=== PATIENT | male | born 1960 | race Caucasian/White ===

== ENCOUNTER 2018-12-11 22:24 | Inpatient (IN) | payer BC ==
[~2018-12-11] VITALS: Ht 175.3 cm; Wt 131.4 kg
[2018-12-11 22:27] VITALS: BP 153/126
[2018-12-11 22:41] LABS: BASOPHILS 0.7 % (0.0-2.0); EOSINOPHILS 1.6 % (0.0-3.0); HEMATOCRIT 45.6 % (42.0-52.0); HEMOGLOBIN 15.8 gm/dL (14.0-18.0); LYMPHOCYTES 18.8 % (24.0-44.0); MCHC 34.6 g/dL (28.0-37.0); MCV 92.4 fL (80.0-100.0); MONOCYTES 9.5 % (1.0-8.0); PLATELET COUNT 147 thou/uL (150-400); POLYS 69.4 % (36.0-66.0); RBC 4.94 mil/uL (4.50-6.00); RDW 14.2 % (10.5-14.5); WBC 7.3 thou/uL (4.0-11.0)
[2018-12-11] MEDS ORDERED: VASCEPA1 GM PO (22:45)
[2018-12-11] MEDS ORDERED: ELIQUIS2.5 MG PO (22:46)
[2018-12-11] MEDS ORDERED: SOTALOL80 MG PO (22:46)
[2018-12-11 22:47] LABS: ANION GAP 14 mmol/L (7-16); BUN 17 mg/dL (7-18); CALCIUM 8.7 mg/dL (8.5-10.1); CHLORIDE 102 mmol/L (98-107); CO2 24 mmol/L (21-32); CREATININE 1.2 mg/dL (0.7-1.3); GLUCOSE 151 mg/dL (74-106); POTASSIUM 3.4 mmol/L (3.5-5.1); SODIUM 140 mmol/L (136-145)
[2018-12-11] MEDS ORDERED: CARVEDILOL3.125 MG PO (22:47)
[2018-12-11] MEDS ORDERED: COZAAR 25 MG TA25 M2 PO (22:47)
[2018-12-11] MEDS ORDERED: COLCHICINE0.6 MG PO (22:48)
[2018-12-11] MEDS ORDERED: ATORVASTATIN CA40 MG PO (22:49)
[2018-12-11] MEDS ORDERED: ALLOPURINOL 30300 M1 PO (22:49)
[2018-12-11] MEDS ORDERED: TYLENOL EXTRA500 MG PO (22:50)
[2018-12-11] MEDS ORDERED: XANAX 0.5 MG0.5 MG PO (22:51)
[2018-12-11 22:56] LABS: MAGNESIUM 1.6 mg/dL (1.8-2.4); TROPONIN-I <0.06 ng/mL (<0.06)
[2018-12-12] VITALS (17 sets, daily range): BP systolic 91–158; BP diastolic 63–105
--- NOTE | 2018-12-12 03:38 | NUR ---
PT ARRIVED UNIT AT ABOUT 0045 VIA ER. PT A/OX4, VITAL SIGNS STABLE, ON CARDIZEM DRIP GOING AT 15ML/HR, HR IN 130'S AND OCCASIONAL RUNS OF VTACH. NO COMPLAINS OF SOA, NO COMPLAINTS OF CHEST PAIN. CARDIZEM TITRATED UP TO 20ML/HR AT ABOUT 0100. AT ABOUT 0300, HR BETWEEN 80-100. CARDIZEM TITRATED DOWN TO 15ML/HR. ADMISSION CONPLETE. CONSENTS SIGNED. PT RESTED WELL FOR THE REST OF SHIFT. WILL CONTINUE TO MONITOR.
[2018-12-12 05:49] LABS: CALCIUM 8.9 mg/dL (8.5-10.1); POTASSIUM 3.9 mmol/L (3.5-5.1)
--- NOTE | 2018-12-12 06:03 | NUR ---
PT CONTINUES TO REST. HR IN 30'S TO 40'S. CARDIZEM TURNED OFF. BP 96/63. ASYMPTOMATIC. SINUS BRADYCARDIA ON THE MONITOR AT THIS TIME. WILL CONTNUE TO CLOSELY MONITOR.
[2018-12-12 09:10] LABS: APTT 32.6 Seconds (24.5-32.8); INR 1.2; PROTIME 12.4 Seconds (9.3-11.4)
--- NOTE | 2018-12-12 10:03 | 2DMMODE ---
[facility] [place] [address] 2 D/M-MODE ECHOCARDIOGRAM Name: VERA SALINAS Room #: 211-P ADM IN .R.#: [id number] ������������� Admission: 12/12/18 ������������� Attend Phys: Timbo Burgos MD Discharge: ��� ������������� ��� Date of : 56 Date of Service: 12/12/18 1002 �� Report #: [id number] �������� ��������������������������������������������[id number] THIS REPORT FOR: //name// APPROVED REPORT Study performed: 12/12/2018 08:33:46 EXAM: Comprehensive 2D, Doppler, and color-flow Echocardiogram Patient Location: Bedside Room #: 211 Status: routine BSA: 2.42 HR: 52 bpm BP: 91/64 mmHg Rhythm: Bradycardia Other Information Study Quality: Technically DifficultTechnically Limited Indications Atrial Fibrillation Bradycardia CAD Hypertension/HDD Echo Enhancing Agent Indication: Endocardial border delineation Agent(s) / Amount(s) Used: Optison 3 cc 2D Dimensions IVSd: 11.95 (7-11mm) LVOT Diam: 21.11 (18-24mm) LVDd: 55.38 mm PWd: 12.36 (7-11mm) LVDs: 44.43 (25-40mm) Aortic Root: 24.70 mm IVC: 25.00 mm Aortic Valve AoV Peak Luis.: 1.73 m/s AO Peak Gr.: 12.00 mmHg LVOT Max P.39 mmHg LVOT Max V: 0.77 m/s JASMINE Vmax: 1.56 cm2 AI Vmax: 3.21 m/s AI Boyd: 1.81 m/s2 AI PHT: 515.[address] [facility] [address] [place] [address] 2 D/M-MODE ECHOCARDIOGRAM Name: VERA SALINAS Room #: 211-P [facility] IN .R.#: [id number] ������������� Admission: 12/12/18 ������������� Attend Phys: Timbo Burgos MD Discharge: ��� ������������� ��� Date of : 56 Date of Service: 12/12/18 1002 �� Report #: [id number] �������� ��������������������������������������������[id number] Mitral Valve E/A Ratio: 3.3 MV Decel. Time: 218.50 ms MV E Max Luis.: 1.19 m/s MV A Luis.: 0.36 m/s MV PHT: 63.36 ms IVRT: 83.04 ms Pulmonary Valve PV Peak Luis.: 0.75 m/s PV Peak Gr.: 2.28 mmHg Tricuspid Valve TR Peak Luis.: 2.80 m/s TR Peak Gr.: 31.46 mmHg PA Pressure: 41.00 mmHg Left Ventricle The left ventricle is normal size. There is global hypokinesis of the left ventricle. Mild concentric left ventricular hypertrophy. Left ventricular systolic function is mildly decreased. LVEF is 45-50%. This study is not technically sufficient to allow evaluation of the LV diastolic function. Right Ventricle The right ventricle is normal size. The right ventricular systolic function is normal. Atria Left atrium is not well visualized. Left atrium is at the upper limits of normal. Right atrium is not well visualized. Aortic Valve Aortic valve is calcified. Mild aortic regurgitation. There mild aortic valvular stenosis. Mitral Valve Moderate mitral annular calcification. Trace to mild mitral regurgitation. No evidence of mitral valve stenosis. Tricuspid Valve The tricuspid valve is normal in structure. There is trace tricuspid regurgitation. Estimated PAP 40 mmHg. There is mild-moderate pulmonary hypertension. Pulmonic Valve [facility] [address] [place] [address] 2 D/M-MODE ECHOCARDIOGRAM Name: VERA SALINAS Room #: 211-P [facility] IN M.R.#: [id number] ������������� Admission: 12/12/18 ������������� Attend Phys: Timbo Burgos MD Discharge: ��� ������������� ��� Date of : 56 Date of Service: 12/12/18 1002 �� Report #: [id number] �������� ��������������������������������������������[id number] The pulmonary valve is normal in structure. Trace pulmonic regurgitation. Great Vessels The aortic root is normal in size. IVC is dilated and collapses <50% with inspiration. Pericardium There is no pericardial effusion. <Conclusion> Technically limited study Left ventricular systolic function is mildly decreased. LVEF is 45-50%. Aortic valve is calcified. Mild aortic regurgitation, very mild stenosis. Moderate mitral annular calcification. Trace to mild mitral regurgitation. There is trace tricuspid regurgitation. Estimated pulmonary artery pressure of 40 mmHg. There is no pericardial effusion. ��������������������������������������������� <ELECTRONICALLY SIGNED> ���������������������������������������� By: Dilip Smith MD, FACC ��������������������������������������������� 12/12/18 1002 1002 1002 Dilip Smith MD, FACC /INF
--- NOTE | 2018-12-12 12:16 | EKG ---
[address] [place] [address] ELECTROCARDIOGRAM REPORT Name: TIFFANI SALINASY Room #: 211-P ADM IN M.R.#: [id number] ������������������ Admission: 12/12/18 ������������������ Attend Phys: Timbo Burgos MD Discharge: ������������������ Date of : 56 Report #: [id number] ����������������������������������������������������������������� [id number] THIS REPORT FOR: //name// [facility] Test Date: 2018-12-12 Test Time: 08:19:45 Pat Name: VERA SALINAS Department: Room: 211 P Gender: M Level Glass Vial Filler: DORA : 1960 Requested By: Heidi Rosales Order Number: [id number] MD: José Allison Measurements Intervals [place] Rate: 40 P: 73 [place]: 199 QRS: -50 QRSD: 104 T: 1 QT: 540 QTc: 441 Interpretive Statements Sinus bradycardia Atrial premature complex Possible inferior infarct, age indeterminate Anterior infarct, old Nonspecific ST-T wave changes Electronically Signed On 12-12-2018 12:16:12 HAND EXPANSION ENVELOPE MAKER by José Allison [email or web address] ��������������������������������������������� <ELECTRONICALLY SIGNED> ���������������������������������������� By: José Allison MD ��������������������������������������������� 12/12/18 1216 D: [id number] 8 José Allison MD /MARK
--- NOTE | 2018-12-12 16:49 | NUR ---
PT CARE ASSUMED APPROX 0700. PT ALERT AND ORIENTED X4. DENIES PAIN AND SOA. PT WAS BRADYCARDIC THIS AM WHEN SHIFT STARETED. EP ROUNDED AND STOPPED RATE CONTROLLING MEDS. PACEMAKER PLACEMENT SCHEDULED FOR THIS AFTERNOON AND COMPLETED. PT RETUNRED TO UNIT APPROX 1530. POST PROCEDURE VSS. FAMILY PRESENT AT BEDSIDE. LEFT CHEST INCISION C/D/I. IMMOBILIZER IN PLACE TO LEFT ARM. PT AND FAMILY DENY QUESTIONS OR CONCERNS REGARDING POC. NO DISTRESS NOTED.
[2018-12-12] MEDS ORDERED: COZAAR 25 MG TA25 M1 PO (20:05)
[2018-12-13 00:25] VITALS: BP 142/89
[2018-12-13 03:55] VITALS: BP 159/95
--- NOTE | 2018-12-13 04:16 | NUR ---
PT. AOX4; NO C/O PAIN; REQUESTED PRN SLEEP MEDICATION AFTER 2300; SBP ELEVATED ON 160'S; 'S PT. STATE PT. TAKES LOSARTAN 50 MG BID; SUPPLIER QUALITY ENGINEERING MANAGER NOTIFIED; ORDERS RECEIVED; SBP AT MIDNIGHT 140'S; ABLE TO REST SOME HOURS; HR WNL; ASSESSMENT CHARGED; FOLLOWING POC; WILL PASS ON REPORT.
[2018-12-13 07:59] VITALS: BP 174/111
[2018-12-13] MEDS ORDERED: COREG6.25 MG PO (09:05)
[2018-12-13] MEDS ORDERED: HYDROCODON-ACE1 EAC7 PO (09:05)
[2018-12-13 11:45] VITALS: BP 148/92
[2018-12-13 13:55] VITALS: BP 148/92
--- NOTE | 2018-12-13 14:23 | NUR ---
PT CARE ASSUMED 0700. PT ALERT AND ORIENTED X4. DENIES PAIN AND SOA. BP SLIGHTLY ELEVATED THIS AM. EP DIRECT SUPPORT STAFF ON UNIT AT TIME AND JUST WANTED AM MEDS GIVEN AND A BP RECHECK IN 45 MIN. DIRECT SUPPORT STAFF WAS NOTIFIED WITH NEW BP AND DISCHARGE WAS APPROVED. LAST VANCO DOSE GIVEN AND PAPERWORK REVIEWED WITH PT AND SPOUSE. BOTH DENY QUESTIONS AND CONCERNS REGARDING DISCHARGE MEDS, F/U APPTS, DIET, ACTIVITY RESTRICTIONS, INCISION CARE AND GENERAL POST HOSPITAL CARE. IV OUT, TELE OFF. NURSING STAFF ESCORTED PT OUT AT THIS TIME.
--- NOTE | 2018-12-14 19:17 | EKG ---
[address] [address] ELECTROCARDIOGRAM REPORT Name: TIFFANI SALINASY Room #: 211-P [facility] IN M.R.#: [id number] ������������������ Admission: 12/12/18 ������������������ Attend Phys: Timbo Burgos MD Discharge: 12/13/18 ������������������ Date of : 56 Report #: [id number] ����������������������������������������������������������������� [id number] THIS REPORT FOR: //name// [facility] ED Test Date: 2018-12-11 Test Time: 22:34:29 Pat Name: VERA SALINAS Department: Room: 211 Gender: M Material Control Specialist: OLINDA : 1960 Requested By: Reinier Hsieh Order Number: [id number] MD: José Allison Measurements Intervals [place] Rate: 132 P: [place]: QRS: -57 QRSD: 106 T: 105 QT: 344 QTc: 510 Interpretive Statements Atrial fibrillation Probable anterolateral infarct, age indeterm Prolonged QT interval No previous ECG available for comparison Electronically Signed On 12-14-2018 19:16:54 APARTMENT MAINTENANCE MANAGER by José Allison [email or web address] ��������������������������������������������� <ELECTRONICALLY SIGNED> ���������������������������������������� By: José Allison MD ��������������������������������������������� 12/14/186 2234 33 José Allison MD /MARK
== END 2018-12-13 14:45 | disposition home or self-care (01) | DRG 244 ==
LOC: ER 22:24 → 2N 12-12 00:21 → EROBS 12-12 00:21 → 2N 12-12 00:41
PROVIDERS: Emergency Medicine; Internal Medicine Cardiovascular Disease; Nurse Practitioner Family; ADMIT Hospitalist
PROC: 0JH606Z Insertion of Pacemaker, Dual Chamber into Chest Subcutaneous Tissue and Fascia, Open Approach (ICD-10-PCS; principal; 2018-12-12)
PROC: 02HK3JZ Insertion of Pacemaker Lead into Right Ventricle, Percutaneous Approach (ICD-10-PCS; principal; 2018-12-12)
PROC: 02H63JZ Insertion of Pacemaker Lead into Right Atrium, Percutaneous Approach (ICD-10-PCS; principal; 2018-12-12)
DX: I49.5 Sick sinus syndrome (principal); I48.0 Paroxysmal atrial fibrillation; I25.10 Atherosclerotic heart disease of native coronary artery without angina pectoris; I10 Essential (primary) hypertension; E78.5 Hyperlipidemia, unspecified; G47.33 Obstructive sleep apnea (adult) (pediatric); M10.9 Gout, unspecified; I45.5 Other specified heart block; I25.2 Old myocardial infarction; Z85.46 Personal history of malignant neoplasm of prostate; Z95.5 Presence of coronary angioplasty implant and graft; Z80.9 Family history of malignant neoplasm, unspecified; Z79.899 Other long term (current) drug therapy
CPT/HCPCS: 10081; 62110; 62900; 70005

== ENCOUNTER 2018-12-24 22:48 | Inpatient (IN) | payer BC ==
[~2018-12-24] VITALS: Ht 175.3 cm; Wt 123.5 kg
[~2018-12-24 22:48] MED LIST: ALLOPURINOL 30300 M1 PO; ATORVASTATIN CA40 MG PO; CARVEDILOL3.125 MG PO; COLCHICINE0.6 MG PO; COREG6.25 MG PO; COZAAR 25 MG TA25 M1 PO; COZAAR 25 MG TA25 M2 PO; ELIQUIS2.5 MG PO; HYDROCODON-ACE1 EAC7 PO; SOTALOL80 MG PO; TYLENOL EXTRA500 MG PO; VASCEPA1 GM PO; XANAX 0.5 MG0.5 MG PO
[2018-12-24 23:16] LABS: ABSOLUTE NEUTROPHILS 4.5 thou/uL (1.4-8.2); BASOPHILS 0.6 % (0.0-2.0); EOSINOPHILS 1.3 % (0.0-3.0); HEMATOCRIT 45.4 % (42.0-52.0); HEMOGLOBIN 15.5 gm/dL (14.0-18.0); LYMPHOCYTES 18.8 % (24.0-44.0); MCH 31.7 pg (26.0-34.0); MCHC 34.2 g/dL (28.0-37.0); MCV 92.5 fL (80.0-100.0); MONOCYTES 8.2 % (1.0-8.0); PLATELET COUNT 144 thou/uL (150-400); POLYS 71.1 % (36.0-66.0); RBC 4.91 mil/uL (4.50-6.00); RDW 14.3 % (10.5-14.5); WBC 6.3 thou/uL (4.0-11.0)
[2018-12-24 23:21] LABS: CALCIUM 8.9 mg/dL (8.5-10.1); POTASSIUM 3.5 mmol/L (3.5-5.1)
[2018-12-24 23:29] LABS: TROPONIN-I 0.06 ng/mL (<0.06)
[2018-12-25 01:03] VITALS: BP 120/90
[2018-12-25 01:30] VITALS: BP 125/78
[2018-12-25 05:13] VITALS: BP 117/98
--- NOTE | 2018-12-25 05:26 | NUR ---
PT NEW ADMIT FROM ER AT ABOUT 0200. ADMITTED FOR AFIB WITH RVR, VTACH. PATIENT WAS HERE A FEW WEEKS A GO FOR PACEMAKER PLACEMENT. HE DENIES PAIN , CHEST PAIN, NAUSEA, VOMITING, DIZZINESS. CARDIO CONSULT , DR SARAVIA �WAS PAGED FROM THE ED AND ORDERED AMIODARONE DRIP. PT REMAINS TO BE TACHY, 100 - 130S BUT ASYPTOMATIC. PT BROUGHT HIS HOME MEDS WITH HIM, MEDS LABELED AND SENT TO PHARMACY, PATIENT AWARE. NO PACEMAKER SPIKES RECORDED ON THE MONITOR. VITAL SIGNS STABLE. WILL CONTINUE TO MONITOR AND FOLLOW POC.
[2018-12-25 07:03] LABS: CALCIUM 8.9 mg/dL (8.5-10.1); CREATININE 1.1 mg/dL (0.7-1.3); POTASSIUM 3.6 mmol/L (3.5-5.1); TROPONIN-I 0.08 ng/mL (<0.06)
[2018-12-25 07:25] VITALS: BP 160/121
--- NOTE | 2018-12-25 08:01 | EKG ---
[address] [address] ELECTROCARDIOGRAM REPORT Name: VERA SALINAS Room #: 204-P ADM IN M.R.#: [id number] ������������������ Admission: 12/25/18 ������������������ Attend Phys: Alex Carpio MD Discharge: ������������������ Date of : 56 Report #: [id number] ����������������������������������������������������������������� [id number] THIS REPORT FOR: //name// [facility] ED Test Date: 2018-12-24 Test Time: 22:51:23 Pat Name: VERA SALINAS Department: Room: 204 Gender: M Study Assistant: Yaya BLACK : 1960 Requested By: Reinier Hsieh Order Number: [id number] MD: Dilip Smith Measurements Intervals [place] Rate: 126 P: 158 [place]: 78 QRS: -54 QRSD: 108 T: 100 QT: 334 QTc: 484 Interpretive Statements Atrial fibrillation with occasional apparent conduction Inferior infarct, old Anterior infarct, old T-wave abnormality, consider lateral ischemia Compared to ECG 12/12/2018 08:19:45 Sinus bradycardia no longer present Electronically Signed On 12-25-2018 8:01:29 CDT by Dilip Smith [email or web address] ��������������������������������������������� <ELECTRONICALLY SIGNED> ���������������������������������������� By: Dilip Smith MD, FACC ��������������������������������������������� 12/25/18 0801 225 225 Dilip Smith MD, [facility] /EPI
[2018-12-25 11:06] VITALS: BP 156/102
[2018-12-25] MEDS ORDERED: COLCHICINE0.6 MG PO (13:23)
[2018-12-25] MEDS ORDERED: VASCEPA1 GM PO (13:23)
[2018-12-25] MEDS ORDERED: ELIQUIS5 MG PO ×2 (13:24→13:25)
--- NOTE | 2018-12-25 15:05 | NUR ---
Chart reviewed and case discussed with the care team. Pt admitted with afib/rvr. He was here recently for pacemaker placement. 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 He has health insurance in place for meds and f/u care. Pcp on file. No cm interventions indicated at this time. DC plan is outpt followup.
--- NOTE | 2018-12-25 16:46 | NUR ---
ASSESSMENT CHARTED - MEDS PER MAR - SOTALOL DOSE INCREASE TODAY AND PTIENT STARTED ON TOPROL WITH FFO EFFECT - PT RATE NOW A PACED IN THE 60'S. SHAHNAZ DIET AND FLUIDS. NO CO'S OF PAIN OR NAUSEA. UP AD ELVA IN ROOM - AMMIO D/C'S PRDERED. PT UP IN THE CHAIR FOR MOST OF THE DAY. NO CO'S AT THE PRESENT TIME.
[2018-12-25 19:27] VITALS: BP 158/97
[2018-12-26 00:11] VITALS: BP 144/98
[2018-12-26 05:49] VITALS: BP 152/79
--- NOTE | 2018-12-26 08:04 | EKG ---
[place] [address] [facility] [place] [address] ELECTROCARDIOGRAM REPORT Name: VERA SALINAS Room #: 204-P ADM IN M.R.#: [id number] ������������������ Admission: 12/25/18 ������������������ Attend Phys: Alex Carpio MD Discharge: ������������������ Date of : 56 Report #: [id number] ����������������������������������������������������������������� [id number] THIS REPORT FOR: //name// [facility] Test Date: 2018-12-26 Test Time: 06:55:32 Pat Name: VERA SALINAS Department: Room: 204 P Gender: M Family Life Educator: JENNIFER : 1960 Requested By: Heidi Rosales Order Number: [id number] MD: Dilip Smith Measurements Intervals [place] Rate: 64 P: [place]: 207 QRS: -48 QRSD: 109 T: 99 QT: 487 QTc: 503 Interpretive Statements Atrial-paced rhythm LAD, consider left anterior fascicular block Anterior infarct, old Nonspecific T abnormalities, lateral leads Prolonged QT interval Baseline wander in lead(s) III Compared to ECG 12/24/2018 22:51:23 Prolonged QT interval now present Atrial fibrillation no longer present Atrial pacing now present Electronically Signed On 12-26-2018 8:04:09 CDT by Dilip Smith [email or web address] ��������������������������������������������� <ELECTRONICALLY SIGNED> ���������������������������������������� By: Dilip Smith MD, FAC ��������������������������������������������� 12/26/18 0804 0655 0655 Dilip Smith MD, FAC /EPI
--- NOTE | 2018-12-26 08:11 | NUR ---
PATIENT ANXIOUS AT START OF SHIFT. FEELING THAT HE IS NOT DIGESTING ANY FOOD, HIS BELLY IS BLOATING. WALKING IN HIS ROOM TO HELP BOTH SITUATIONS. SOTOLOL INCREASED, HOME MEDS RESTARTED. MONITORING HR WITH MED CHANGES. HOME MED SENT TO PHARMACY, IN PATIENTS MED DRAWER FOR TWICE DAILY DOSING. PLAN OF CARE MAY INCLUDE GOING HOME TODAY.
[2018-12-26 08:33] VITALS: BP 165/98
[2018-12-26 12:13] VITALS: BP 152/96
--- NOTE | 2018-12-26 15:10 | NUR ---
ASSUMED CARE OF PT AT APPROX 0700. PT IS AELERT AND ORIENTED X4, MONITORED ON TELE AND ABLE TO MAINTAIN 02 SAT >90 ON RA. ASSESSMENT CHARTED. DENIES PAIN AND SOA. EVEN NON LABORED BREATHING. OFF UNIT FOR CTA. PT RETURNED WITH NO ISSUES. PT HAS BEEN UPDATED ON POC. NO CUURENT QUESTIONS OR CONCERNS. REPORTING OFF TO FELLOW RN TO TAKE OVER CARE AT THIS TIME.
[2018-12-26 16:25] VITALS: BP 154/93
[2018-12-26] MEDS ORDERED: METOPROLOL SUCC50 MG PO (17:05)
--- NOTE | 2018-12-26 17:19 | NUR ---
PT CARE ASSUMED APPROX 1500. PT ALERT AND ORIENTED X4. DENIES PAIN AND SOA. VSS. WILL DISCHARGE TOMORROW SO CAN BE OBSERVED ON NEW SOTALOL DOSE OVERNIGHT. CTA CHEST COMPLETED TODAY FOR PRE-ABLATION PROTOCOL. NO DISTRESS NOTED AT THIS TIME.
[2018-12-26] MEDS ORDERED: SOTALOL80 MG PO (17:20)
[2018-12-26] MEDS ORDERED: SORINE 80 MG TA80 M1 PO (17:28)
--- NOTE | 2018-12-26 17:49 | NUR ---
NO I&O RECORDED FOR PT THIS SHIFT
[2018-12-26 19:55] VITALS: BP 152/78
[2018-12-27 02:49] LABS: HEMATOCRIT 44.5 % (42.0-52.0); HEMOGLOBIN 15.1 gm/dL (14.0-18.0); MCH 31.3 pg (26.0-34.0); MCHC 33.9 g/dL (28.0-37.0); MCV 92.3 fL (80.0-100.0); RBC 4.82 mil/uL (4.50-6.00); RDW 14.2 % (10.5-14.5); WBC 7.6 thou/uL (4.0-11.0)
[2018-12-27 03:04] LABS: CALCIUM 8.6 mg/dL (8.5-10.1); CREATININE 1.1 mg/dL (0.7-1.3); POTASSIUM 3.9 mmol/L (3.5-5.1)
[2018-12-27 04:00] VITALS: BP 161/92
[2018-12-27 08:09] VITALS: BP 160/92
--- NOTE | 2018-12-27 08:33 | NUR ---
ASSUME CARE 1900. PT/VITALSS TABLE. DENIES ANY PAIN. UP AD ELVA. ADEQUATE REST NOTED THROUGH THE NIGHT, ASSESSMENT CHARTED. PROGRESSING WELL WITH POC. PLAN IS A POSSIBLE DISCHARGE TODAY. WILL CONTINUE TO FOLLOW WITH POC
[2018-12-27 10:33] VITALS: BP 160/92
--- NOTE | 2018-12-27 10:59 | NUR ---
ASSESSMENT DOCUMENTED. DENIED HAVING PAIN OR DISCOMFORT. VSS. REPORT FEELING BETTER THIS AM. SEEN BY DR. MERAZ AND DR. SCHMIDT. ORDERS GIVEN TO DISCHARGE PT TO HOME. DISCHARGE INSTRUCTIONS GIVEN TO PT AND THE . PT VERBERLIZE UNDERSTANDING.
--- NOTE | 2018-12-28 13:30 | EKG ---
[address] [address] ELECTROCARDIOGRAM REPORT Name: BRAD,VERA Room #: [facility] IN .R.#: [id number] ������������������ Admission: 12/25/18 ������������������ Attend Phys: Alex Carpio MD Discharge: 12/27/18 ������������������ Date of : 56 Report #: [id number] ����������������������������������������������������������������� [id number] THIS REPORT FOR: //name// [facility] Test Date: 2018-12-27 Test Time: 07:43:41 Pat Name: VERA SALINAS Department: Room: 204 P Gender: M Medical Laboratory Scientist: ewa : 1960 Requested By: Mario Myrick Order Number: [id number] MD: Dilip Smith Measurements Intervals [place] Rate: 67 P: 58 [place]: 187 QRS: -51 QRSD: 108 T: 87 QT: 459 QTc: 485 Interpretive Statements Sinus rhythm Inferior infarct, old Anterior infarct, old Compared to ECG 12/26/2018 06:55:32 Atrial-paced complex(es) or rhythm no longer present Electronically Signed On 12-28-2018 13:30:13 CDT by Dilip Smith [email or web address] ��������������������������������������������� <ELECTRONICALLY SIGNED> ���������������������������������������� By: Dilip Smith MD, FACC ��������������������������������������������� 12/28/18 1330 0743 0743 Dilip Smith MD, [facility] /EPI
== END 2018-12-27 11:18 | disposition home or self-care (01) | DRG 309 ==
LOC: ER 22:48 → 2N 12-25 00:18 → EROBS 12-25 00:18 → 2N 12-25 01:50
PROVIDERS: Emergency Medicine; Nurse Practitioner Family; ADMIT Hospitalist
DX: I48.0 Paroxysmal atrial fibrillation (principal); Z68.41 Body mass index [BMI] 40.0-44.9, adult; I48.2 Chronic atrial fibrillation; I10 Essential (primary) hypertension; M10.9 Gout, unspecified; E78.5 Hyperlipidemia, unspecified; E66.9 Obesity, unspecified; I49.5 Sick sinus syndrome; F41.9 Anxiety disorder, unspecified; I25.10 Atherosclerotic heart disease of native coronary artery without angina pectoris; I25.2 Old myocardial infarction; Z85.46 Personal history of malignant neoplasm of prostate; Z95.5 Presence of coronary angioplasty implant and graft; Z95.0 Presence of cardiac pacemaker; Z79.899 Other long term (current) drug therapy; Z80.8 Family history of malignant neoplasm of other organs or systems
CPT/HCPCS: 10081

== ENCOUNTER 2019-02-02 23:48 | Emergency (ER) | payer BC ==
[~2019-02-02] VITALS: Ht 175.3 cm; Wt 127.0 kg
[~2019-02-02 23:48] MED LIST changes: +ELIQUIS5 MG PO; +METOPROLOL SUCC50 MG PO; +SORINE 80 MG TA80 M1 PO
[2019-02-03 01:57] VITALS: BP 167/96
[2019-02-03] MEDS ORDERED: AMOXICILLIN875 MG PO (07:47)
== END 2019-02-03 01:57 | disposition home or self-care (01) ==
LOC: ER 23:48
DX: R04.0 Epistaxis (principal); D68.59 Other primary thrombophilia; I48.91 Unspecified atrial fibrillation; I10 Essential (primary) hypertension; M10.9 Gout, unspecified; E78.5 Hyperlipidemia, unspecified; Z85.46 Personal history of malignant neoplasm of prostate; Z95.0 Presence of cardiac pacemaker

== ENCOUNTER 2019-02-03 06:03 | Emergency (ER) | payer BC ==
[~2019-02-03] VITALS: Ht 172.7 cm; Wt 127.0 kg
[2019-02-03] MEDS ORDERED: AMOXICILLIN875 MG PO (07:47)
[2019-02-03 08:45] VITALS: BP 160/83
== END 2019-02-03 08:47 | disposition home or self-care (01) ==
LOC: ER 06:03
DX: R04.0 Epistaxis (principal); I10 Essential (primary) hypertension; I48.0 Paroxysmal atrial fibrillation; M10.9 Gout, unspecified; E78.5 Hyperlipidemia, unspecified; Z85.46 Personal history of malignant neoplasm of prostate

== ENCOUNTER 2019-03-19 21:07 | Emergency (ER) | payer BC ==
[~2019-03-19] VITALS: Ht 172.7 cm; Wt 127.0 kg
[~2019-03-19 21:07] MED LIST changes: +AMOXICILLIN875 MG PO
[2019-03-19 23:42] LABS: HEMATOCRIT 42.6 % (42.0-52.0); MCHC 32.9 g/dL (28.0-37.0); MCV 94.1 fL (80.0-100.0); PLATELET COUNT 181 thou/uL (150-400); RBC 4.52 mil/uL (4.50-6.00); WBC 9.7 thou/uL (4.0-11.0)
[2019-03-19 23:49] LABS: CALCIUM 9.2 mg/dL (8.5-10.1); CREATININE 1.4 mg/dL (0.7-1.3); POTASSIUM 3.9 mmol/L (3.5-5.1)
[2019-03-19 23:54] LABS: INR 1.2; PROTIME 12.1 Seconds (9.3-11.4)
[2019-03-19 23:55] LABS: ALBUMIN 4.1 g/dL (3.4-5.0); TOTAL BILIRUBIN 0.4 mg/dL (<0.1-1.0)
[2019-03-20 00:13] LABS: ABSOLUTE NEUTROPHILS 7.7 thou/uL (1.4-8.2)
[2019-03-20 01:06] VITALS: BP 135/97
== END 2019-03-20 01:07 | disposition home or self-care (01) ==
LOC: ER 21:07
PROVIDERS: Emergency Medicine
DX: R04.0 Epistaxis (principal); I48.91 Unspecified atrial fibrillation; I10 Essential (primary) hypertension; E78.5 Hyperlipidemia, unspecified; Z85.46 Personal history of malignant neoplasm of prostate; Z95.5 Presence of coronary angioplasty implant and graft

== ENCOUNTER 2020-08-14 14:34 | Emergency (ER) | payer OTHER ==
[~2020-08-14] VITALS: Ht 175.3 cm; Wt 124.7 kg
[2020-08-14] MEDS ORDERED: CARVEDILOL25 MG PO (15:40)
[2020-08-14] MEDS ORDERED: NORVASC 2.5 MG2.5 M1 PO (15:40)
[2020-08-14] MEDS ORDERED: LEVOFLOXACIN750 MG PO (16:08)
[2020-08-14] MEDS ORDERED: NORCO 5-325 TA1 EAC2 PO (16:09)
[2020-08-14 16:10] VITALS: BP 151/90
== END 2020-08-14 16:10 | disposition home or self-care (01) ==
LOC: ER 14:34
DX: N45.1 Epididymitis (principal); I10 Essential (primary) hypertension; I48.91 Unspecified atrial fibrillation; I25.2 Old myocardial infarction; M10.9 Gout, unspecified; E78.5 Hyperlipidemia, unspecified; Z79.899 Other long term (current) drug therapy